=== PATIENT | female | born 1945 | race Caucasian/White ===

== ENCOUNTER 2022-03-09 07:30 | Outpatient (RCR) | payer MEDICARE, BC, SELFPAY | END 2022-07-13 09:43 | disposition home or self-care (01) | PROVIDERS: Visit Provider Podiatrist Foot Surgery | DX: M19.072 Primary osteoarthritis, left ankle and foot (principal); M19.071 Primary osteoarthritis, right ankle and foot; Z51.89 Encounter for other specified aftercare | CPT/HCPCS: 97110; 97140; 97162 ==

== ENCOUNTER 2023-02-25 11:00 | Outpatient (RCR) | payer MEDICARE, BC, SELFPAY | END 2023-06-25 23:59 | disposition home or self-care (01) | PROVIDERS: PCP Family Medicine; Visit Provider Orthopaedic Surgery | DX: M25.552 Pain in left hip (principal); M54.42 Lumbago with sciatica, left side; M54.41 Lumbago with sciatica, right side; G89.29 Other chronic pain; M62.81 Muscle weakness (generalized); M25.662 Stiffness of left knee, not elsewhere classified; M25.661 Stiffness of right knee, not elsewhere classified; M22.2X2 Patellofemoral disorders, left knee; M22.2X1 Patellofemoral disorders, right knee; M51.36 Other intervertebral disc degeneration, lumbar region; M70.62 Trochanteric bursitis, left hip; Z51.89 Encounter for other specified aftercare | CPT/HCPCS: 97110; 97140; 97162; 97535 ==

== ENCOUNTER 2023-04-19 13:07 | Outpatient (CLI) | payer MEDICARE, BC, SELFPAY ==
--- NOTE | 2023-04-19 13:20 | CRLHL7_ITS ---
For Patients: As a result of the Cures Act, medical imaging exams and procedure reports are released immediately into your electronic medical record. You may view this report before your referring provider. If you have questions, please contact your health care provider. BILATERAL SCREENING MAMMOGRAM WITH COMPUTER-AIDED DETECTION AND TOMOSYNTHESIS TECHNIQUE: CC and MLO views were obtained. These mammographic images have been obtained using full-field digital technique. These mammographic images were interpreted with the benefit of computer-aided detection. Breast Tomosynthesis was used in this interpretation. COMPARISON FILM: 03/23/21, 03/03/20, 02/15/19. FINDINGS: The breasts are heterogeneously dense, which may obscure small masses IMPRESSION: There is no radiographic evidence for malignancy. ASSESSMENT: BI-RADS Category 1: Negative RECOMMENDATION: Routine screening mammogram in 1 year. A lay language report of this examination will be provided to the patient. Cruz Matthews M.D. Diagnostic/Nuclear Medicine Radiologist [email or web address] HUSSEIN/Dictated by: Cruz Matthews MD @ 04/20/2023 9:37:00 AM (Electronically Signed)
== END 2023-04-19 13:08 | disposition home or self-care (01) ==
LOC: MAMMO 13:08
PROVIDERS: PCP Family Medicine; Visit Provider Family Medicine
DX: Z12.31 Encounter for screening mammogram for malignant neoplasm of breast (principal); R92.2 Inconclusive mammogram
CPT/HCPCS: 77063; 77067

== ENCOUNTER 2023-08-04 13:54 | Outpatient (CLI) | payer MEDICARE, BC, SELFPAY ==
--- NOTE | 2023-08-04 14:00 | XR_ITS ---
Patient: JOSÉ MIGUEL IVEY Facility:?[facility] Patient ID:?[id number] Study:?DEXA Bone Density -08/04/2023 2:53:10 PM Ordering Physician:NASEEM PAPPAS Final Report: DXA BONE MINERAL DENSITY STUDY Reason for exam: Osteopenia Current height (in): 67. Weight (lb): 160. Menopause age: 53. Ethnicity: White. 1. Have you had a previous hip or vertebral fracture? No. 2. Have you had any fractures during your adult life which did not result from significant trauma (e.g., auto accident)? No. 3. Did either of your parents have a hip fracture? Yes. 4. Do you smoke? No. 5. Have you ever taken Glucocorticoids? No. 6. Do you have rheumatoid arthritis? No. 7. Do you have secondary osteoporosis? No. 8. Do you drink 3 or more alcoholic drinks per day? No. 9. Are you being treated for osteoporosis? No. 10. Have you ever taken any of the following medications: Actonel, Evista, Fosamax, Miacalcin, Reclast, Boniva, Forteo, HRT (i.e., estrogen/hormone therapy), Protelos, Prolia, Vitamin D, Calcium, other ? please specify. ANSWER: Yes, Fosamax (i.e., alendronate), vitamin D, and calcium. 11. Do you have any of the following medical conditions: Anorexia or bulimia, asthma or emphysema, end stage renal disease, hyperparathyroidism, any seizure disorders, cancer, inflammatory bowel diseases, hysterectomy, other ? please specify. ANSWER: Yes, arthritis. 12. What was your maximum height (inches)? 68. 13. Do you perform weight bearing exercise regularly? Yes. 14. Do you regularly consume dairy products? Yes. 15. Do you drink caffeinated beverages? Yes. If female: 16. At what age did your period start? 13. 17. Are you premenopausal? No. 18. How many full-term pregnancies have you had? 2. 19. Have you ever missed your period for more than 6 months in a row (not including or menopause)? No. TECHNIQUE: Bone mineral density study was performed using the [employer]. FINDINGS: The results of the study expressed as bone mineral density (BMD) are as follows: Lumbar spine L1 to L4: BMD: 0.987 g/cm2. T-score: -0.5. Z-score: 2.1 Neck Left: BMD: 0.704 g/cm2. T-score: -1.3. Z-score: 1.0 Right: BMD: 0.779 g/cm2. T-score: -0.6. Z-score: 1.7 Total Left: BMD: 0.902 g/cm2. T-score: -0.3. Z-score: 1.7 Right: BMD: 0.901 g/cm2. T-score: -0.3. Z-score: 1.7 IMPRESSION: Osteopenia. *Comparison exams done prior to 10/2019 were performed on different unit, [employer]. COMPARISON: Compared with scan of 10/16/2020, the bone mineral density has increased by 1.8 percent at the spine and increased by 3.2 percent at the hip. Compared with scan of 08/25/2017, the bone mineral density has increased by 5.1 percent at the spine and increased by 8.3 percent at the hip. FRAX 10-year Fracture Risk Major Osteoporotic Fracture: 22% Hip Fracture: 12% Reported Risk Factors: [place] () Neck BMD=0.704, BMI=25.1, parental fracture Tika Pelayo M.D. Body/Diagnostic Radiologist [email or web address] RAPHAEL/evan D& Transcribed: 12:52 p.mPoli gordon/Dictated by: Tika Pelayo MD @ 08/05/2023 3:02:00 AM (Electronic Signature)
== END 2023-08-04 13:55 | disposition home or self-care (01) ==
LOC: RAD 13:57
PROVIDERS: PCP Family Medicine; Visit Provider Family Medicine
DX: M85.89 Other specified disorders of bone density and structure, multiple sites (principal); M85.88 Other specified disorders of bone density and structure, other site
CPT/HCPCS: 77080

== ENCOUNTER 2024-07-05 08:45 | Outpatient (CLI) | payer MEDICARE, BC, SELFPAY | END 2024-07-05 08:46 | disposition home or self-care (01) | LOC: MAMMO 08:47 | PROVIDERS: PCP Family Medicine; Visit Provider Family Medicine | DX: Z12.31 Encounter for screening mammogram for malignant neoplasm of breast (principal) | CPT/HCPCS: 77063; 77067 ==

== ENCOUNTER 2024-07-06 08:54 | Outpatient (CLI) | payer MEDICARE, BC, SELFPAY ==
--- NOTE | 2024-07-06 10:21 | W.ANESCHARGE ---
Anesthesia Charges Start Date/Time Anesthesia Start Date: 07/06/24 Anesthesia Start Time: 09:43 Stop Date/Time Anesthesia Stop Date: 07/06/24 Anesthesia Stop Time: 10:21 Summary Extremes of Age - Over 70 or under 1: MDA Coding CPT Codes CPT Codes: ANES LWR INTST SCR COLSC - 15074 ([id number]) QK - MONOTYPIST 2-4 CNCRNT ANES PROC, QX - DIRECTOR OF ROOMS SVC W/ MD MED DIRECTION, P3 - PATIENT W/SEVERE SYS DISEASE Additional Codes: Summary - Extremes of Age - Over 70 or under 1: MDA ([id number])
--- NOTE | 2024-07-06 10:23 | W.ANESCHARGE ---
Anesthesia Charges Start Date/Time Anesthesia Start Date: 07/06/24 Anesthesia Start Time: 09:43 Stop Date/Time Anesthesia Stop Date: 07/06/24 Anesthesia Stop Time: 10:21 Summary Extremes of Age - Over 70 or under 1: INSPECTOR WIRE ROPE Coding CPT Codes CPT Codes: ANES LWR INTST SCR COLSC - 52627 ([id number]) P3 - PATIENT W/SEVERE SYS DISEASE, QX - INSPECTOR WIRE ROPE SVC W/ MD MED DIRECTION, QK - FRUIT TESTER 2-4 CNCRNT ANES PROC Additional Codes: Summary - Extremes of Age - Over 70 or under 1: INSPECTOR WIRE ROPE ([id number])
== END 2024-07-06 08:55 | disposition home or self-care (01) ==
LOC: OP CLINIC 08:56
PROVIDERS: PCP Family Medicine; Visit Provider Internal Medicine Gastroenterology
DX: Z12.11 Encounter for screening for malignant neoplasm of colon (principal); Q43.8 Other specified congenital malformations of intestine; Z86.0100 Personal history of colon polyps, unspecified
CPT/HCPCS: 00812; 45378; 99100; J2704

== ENCOUNTER 2024-10-02 10:15 | Outpatient (RCR) | payer MEDICARE, BC, SELFPAY | END 2025-01-30 23:59 | disposition home or self-care (01) | PROVIDERS: PCP Family Medicine; Visit Provider Family Medicine | DX: M54.42 Lumbago with sciatica, left side (principal); G89.29 Other chronic pain; M25.552 Pain in left hip; Z51.89 Encounter for other specified aftercare | CPT/HCPCS: 97035; 97110; 97140; 97162 ==